=== PATIENT | male | born 1955 | race Caucasian/White ===

== ENCOUNTER 2019-09-11 10:42 | Day surgery (SDC) | payer OTHER ==
[2019-09-11] VITALS (7 sets, daily range): BP systolic 125–149; BP diastolic 65–92; PULSE 60–80; TEMP 97.7–97.8
[~2019-09-11] VITALS: Ht 182.9 cm; Wt 118.6 kg
[2019-09-11] MEDS ORDERED: CLARITIN 1010 MG/TAB PO (11:29)
[2019-09-11] MEDS ORDERED: PRILOSEC 20MG20 MG PO (11:30)
--- NOTE | 2019-09-11 11:32 | NUR ---
TO RM AT 1051- CALL LIGHT IN REACH WILL CALL FOR RIDE HOME
[2019-09-11] MEDS ORDERED: MOTRIN 600600 MG/TAB PO (15:12)
[2019-09-11] MEDS ORDERED: NORCO 325 MG-51 TAB PO (15:13)
--- NOTE | 2019-09-11 15:30 | NUR ---
TO RM 2 PER CART FROM PACU. AWAKENS TO VERBAL STIMULATION AND FALLS BACK TO SLEEP. MARMOLEJO SET OVER INCISION SITES. DENIES PAIN OR DISCOMFORT DENIES NAUSEA OR VOMITING.
--- NOTE | 2019-09-11 15:45 | NUR ---
CONTINUES TO SLEEP QUIETLY.
--- NOTE | 2019-09-11 16:00 | NUR ---
MORE AWAKE AND TAKING SIPS OF WATER. DENIES PAIN OR DISCOMFORT AT CURRENT TIME.
--- NOTE | 2019-09-11 16:30 | NUR ---
RECEIVED IS[facility] AND RL CALLED WHEN PATIENT RETURNED TO TO TRANSPORTATION MANAGER PATIENT
--- NOTE | 2019-09-11 16:40 | NUR ---
PATIENT BELTCHING AND STATED IT HELPS. AMBULATED TO BATHROOM WITH STANDBY ASSIST. VOIDED AND AMBULATED BACK TO BED. RECEIVED DISCHARGE INSTRUCTIONS AND VERBALIZED UNDERSTANDING. DISCONTINUED IV AND INT- CATHETER INTACT.
--- NOTE | 2019-09-11 16:55 | NUR ---
DISCHARGED PER WC BY NURSING STAFF TO PRIVATE CAR IN CARE OF DARNELL.
== END 2019-09-11 16:57 | disposition home or self-care (01) ==
LOC: SDCO 10:42
DX: K40.21 Bilateral inguinal hernia, without obstruction or gangrene, recurrent (principal); D17.6 Benign lipomatous neoplasm of spermatic cord; K21.9 Gastro-esophageal reflux disease without esophagitis; M19.90 Unspecified osteoarthritis, unspecified site; F17.210 Nicotine dependence, cigarettes, uncomplicated; G54.0 Brachial plexus disorders; E78.00 Pure hypercholesterolemia, unspecified; Z88.0 Allergy status to penicillin; Z88.8 Allergy status to other drugs, medicaments and biological substances; Z88.7 Allergy status to serum and vaccine; Z98.52 Vasectomy status; Z20.828 Contact with and (suspected) exposure to other viral communicable diseases
CPT/HCPCS: C1781; J0690; J1100; J1885; J2405; J2550; J2704; J3010; J7120